=== PATIENT | female | born 1950 | race Caucasian/White ===

== ENCOUNTER 2017-08-16 12:54 | Inpatient (IN) | payer OTHER ==
[~2017-08-16] VITALS: Ht 157.5 cm; Wt 106.3 kg
[~2017-08-16 12:54] MED LIST: NABUMETONE750 MG PO
[2017-08-16 13:53] LABS: HEMATOCRIT 40.5 % (36.0-46.0); MCH 27.4 PG (29.0-34.0); MCHC 32.6 G/DL (30.0-36.0); MCV 84.2 FL (83-99); MEAN PLAT.VOLUME 10.7 uM^3 (9.5-12.4); NRBC (%) 1.9 /100 WBC (0-0); PLATELET COUNT 232 K/uL (156-360); RBC DIS.WIDTH-CV 26.5 % (11.8-14.6); RBC DIS.WIDTH-SD 74.8 % (39-53); RED BLOOD COUNT 4.81 M/uL (3.80-5.20); WHITE BLOOD COUNT 13.9 K/uL (4.1-10.2)
[2017-08-16 14:02] LABS: CHLORIDE 99 mEq/L (99-109); POTASSIUM 4.5 mEq/L (3.7-5.4); SODIUM 132 mEq/L (136-147)
[2017-08-16 14:04] LABS: GLUCOSE 140 mg/dL (70-99)
[2017-08-16 14:05] LABS: ANION GAP 13 MEQ/L (2-14)
[2017-08-16 14:06] LABS: TOTAL BILIRUBIN 17.4 mg/dL (0.0-1.0)
[2017-08-16 14:08] LABS: ALKALINE PHOSPHATASE 955 IU/L (3-129); GFR ESTIMATE (CALCULATED) 32 mL/min/
[2017-08-16 14:11] LABS: UREA NITROGEN (BUN) 35 mg/dL (9-23)
[2017-08-16 14:41] LABS: LIPASE 168 U/L (1.0-51.0)
[2017-08-16 20:25] VITALS: BP 143/64
[2017-08-16 21:41] LABS: ADD MIUA? YES; BILIRUBIN SMALL; BLOOD SMALL; COLOR AMBER ((YELLOW)); GLUCOSE (STRIP) NEGATIVE; KETONES NEGATIVE; LEUKOCYTES LARGE; NITRITE POSITIVE; PROTEIN (STRIP) NEGATIVE; SPECIFIC GRAVITY 1.026 (1.000-1.030)
[2017-08-16 21:50] LABS: BACTERIA 3+ /HPF; EPITHELIAL CELLS RARE /HPF; MUCUS TRACE /LPF; RED BLOOD CELLS 0-5 /HPF (0-5); UCUL ADDED? YES; WHITE BLOOD CELLS TNTC /HPF (0-5); WHITE BLOOD CELLS CLUMP MANY /HPF (0-5)
[2017-08-16 23:25] VITALS: BP 128/60
[2017-08-17 05:49] LABS: HEMATOCRIT 39.2 % (36.0-46.0); MCH 27.1 PG (29.0-34.0); MCHC 31.9 G/DL (30.0-36.0); NRBC (%) 1.6 /100 WBC (0-0); RBC DIS.WIDTH-CV 26.5 % (11.8-14.6); RED BLOOD COUNT 4.61 M/uL (3.80-5.20); WHITE BLOOD COUNT 11.9 K/uL (4.1-10.2)
[2017-08-17 06:01] LABS: INTER. NORMALIZED RATIO 1.2; PROTHROMBIN TIME 14.1 SEC (10.2-12.9)
[2017-08-17 06:15] LABS: ALKALINE PHOSPHATASE 765 IU/L (3-129); ANION GAP 7 MEQ/L (2-14); CHLORIDE 100 MEQ/L (99-109); GFR ESTIMATE (CALCULATED) 34 mL/min/; POTASSIUM 4.8 MEQ/L (3.7-5.4); SAMPLE HEMOLYSIS CHECK 0; SAMPLE ICTERIC CHECK 3; SAMPLE LIPEMIA CHECK 0; SODIUM 135 MEQ/L (136-147); UREA NITROGEN (BUN) 31 mg/dL (9-23)
[2017-08-17 06:16] LABS: MEAN PLAT.VOLUME 10.6 uM^3 (9.5-12.4); PLAT.SUFFICIENCY ADEQUATE; PLATELET COUNT 218 K/uL (156-360)
[2017-08-17 06:18] LABS: GLUCOSE 81 mg/dL (70-99)
[2017-08-17 06:19] LABS: TOTAL BILIRUBIN 16.8 MG/DL (0.0-1.0)
[2017-08-17 06:45] VITALS: BP 146/64
[2017-08-17 12:59] VITALS: BP 128/59
[2017-08-17 16:31] VITALS: BP 135/63
[2017-08-17 23:37] VITALS: BP 111/58
[2017-08-18 06:32] LABS: ALKALINE PHOSPHATASE 810 IU/L (3-129); ANION GAP 10 MEQ/L (2-14); CHLORIDE 105 MEQ/L (99-109); GFR ESTIMATE (CALCULATED) 40 mL/min/; GLUCOSE 78 mg/dL (70-99); LACTATE DEHYDROGENASE 420 IU/L (20-246); POTASSIUM 4.7 MEQ/L (3.7-5.4); SAMPLE HEMOLYSIS CHECK 0; SAMPLE ICTERIC CHECK 3; SAMPLE LIPEMIA CHECK 0; SODIUM 138 MEQ/L (136-147); TOTAL BILIRUBIN 18.9 MG/DL (0.0-1.0); UREA NITROGEN (BUN) 29 mg/dL (9-23); URIC ACID 7.2 mg/dL (3.1-9.2)
[2017-08-18 07:26] LABS: HEMATOCRIT 38.4 % (36.0-46.0); MCH 27.9 PG (29.0-34.0); MCHC 32.3 G/DL (30.0-36.0); MCV 86.3 FL (83-99); MEAN PLAT.VOLUME 10.5 uM^3 (9.5-12.4); NRBC (%) 1.3 /100 WBC (0-0); PLATELET COUNT 201 K/uL (156-360); RBC DIS.WIDTH-CV 27.3 % (11.8-14.6); RBC DIS.WIDTH-SD 81.2 % (39-53); RED BLOOD COUNT 4.45 M/uL (3.80-5.20); WHITE BLOOD COUNT 11.6 K/uL (4.1-10.2)
[2017-08-18 07:46] VITALS: BP 140/60
[2017-08-18 16:18] VITALS: BP 136/63
[2017-08-19] VITALS: BP 145/61
[2017-08-19 06:09] LABS: HEMATOCRIT 38.6 % (36.0-46.0); MCH 27.8 PG (29.0-34.0); MCHC 32.4 G/DL (30.0-36.0); NRBC (%) 1.2 /100 WBC (0-0); RBC DIS.WIDTH-CV 27.9 % (11.8-14.6); RED BLOOD COUNT 4.49 M/uL (3.80-5.20); WHITE BLOOD COUNT 12.8 K/uL (4.1-10.2)
[2017-08-19 06:42] LABS: ALKALINE PHOSPHATASE 848 IU/L (3-129); ANION GAP 10 MEQ/L (2-14); CHLORIDE 102 MEQ/L (99-109); GFR ESTIMATE (CALCULATED) 37 mL/min/; SAMPLE HEMOLYSIS CHECK 0; SAMPLE ICTERIC CHECK 3; SAMPLE LIPEMIA CHECK 0; SODIUM 133 MEQ/L (136-147); TOTAL BILIRUBIN 21.4 MG/DL (0.0-1.0); UREA NITROGEN (BUN) 32 mg/dL (9-23)
[2017-08-19 06:44] LABS: GLUCOSE 99 mg/dL (70-99)
[2017-08-19 07:11] LABS: MEAN PLAT.VOLUME 11.5 uM^3 (9.5-12.4); PLATELET COUNT 196 K/uL (156-360)
[2017-08-19 08:00] VITALS: BP 131/70
[2017-08-19 16:24] VITALS: BP 129/59
[2017-08-20 00:23] VITALS: BP 127/60
[2017-08-20 05:32] LABS: MCH 27.7 PG (29.0-34.0); MCHC 31.9 G/DL (30.0-36.0); MCV 86.9 FL (83-99); MEAN PLAT.VOLUME 10.6 uM^3 (9.5-12.4); NRBC (%) 0.8 /100 WBC (0-0); PLATELET COUNT 198 K/uL (156-360); RBC DIS.WIDTH-CV 27.6 % (11.8-14.6); RBC DIS.WIDTH-SD 83.8 % (39-53); RED BLOOD COUNT 4.26 M/uL (3.80-5.20); WHITE BLOOD COUNT 11.8 K/uL (4.1-10.2)
[2017-08-20 05:57] LABS: ALKALINE PHOSPHATASE 758 IU/L (3-129); ANION GAP 5 MEQ/L (2-14); CHLORIDE 106 MEQ/L (99-109); GFR ESTIMATE (CALCULATED) 40 mL/min/; GLUCOSE 88 mg/dL (70-99); POTASSIUM 4.5 MEQ/L (3.7-5.4); SAMPLE HEMOLYSIS CHECK 0; SAMPLE ICTERIC CHECK 3; SAMPLE LIPEMIA CHECK 0; SODIUM 134 MEQ/L (136-147); TOTAL BILIRUBIN 19.9 MG/DL (0.0-1.0); UREA NITROGEN (BUN) 29 mg/dL (9-23)
[2017-08-20 07:29] VITALS: BP 158/66
[2017-08-20 15:11] VITALS: BP 140/62
[2017-08-21 00:14] VITALS: BP 147/61
[2017-08-21 06:19] LABS: HEMATOCRIT 41.1 % (36.0-46.0); MCH 27.6 PG (29.0-34.0); MCHC 31.4 G/DL (30.0-36.0); MEAN PLAT.VOLUME 10.2 uM^3 (9.5-12.4); NRBC (%) 1.5 /100 WBC (0-0); PLATELET COUNT 197 K/uL (156-360); RBC DIS.WIDTH-SD 90.3 % (39-53); RED BLOOD COUNT 4.67 M/uL (3.80-5.20); WHITE BLOOD COUNT 12.9 K/uL (4.1-10.2)
[2017-08-21 06:48] LABS: ALKALINE PHOSPHATASE 920 IU/L (3-129); ANION GAP 9 MEQ/L (2-14); CHLORIDE 107 MEQ/L (99-109); GFR ESTIMATE (CALCULATED) 37 mL/min/; GLUCOSE 79 mg/dL (70-99); POTASSIUM 4.9 MEQ/L (3.7-5.4); SAMPLE HEMOLYSIS CHECK 0; SAMPLE ICTERIC CHECK 4; SAMPLE LIPEMIA CHECK 0; SODIUM 137 MEQ/L (136-147); UREA NITROGEN (BUN) 31 mg/dL (9-23)
[2017-08-21 08:54] VITALS: BP 163/69
[2017-08-21 15:40] VITALS: BP 137/63
[2017-08-22 00:10] VITALS: BP 148/65
[2017-08-22 05:58] LABS: MCH 28.3 PG (29.0-34.0); MCHC 32.1 G/DL (30.0-36.0); MCV 88.2 FL (83-99); MEAN PLAT.VOLUME 10.7 uM^3 (9.5-12.4); NRBC (%) 2.2 /100 WBC (0-0); PLATELET COUNT 198 K/uL (156-360); RBC DIS.WIDTH-CV 29.5 % (11.8-14.6); RBC DIS.WIDTH-SD 91.7 % (39-53); RED BLOOD COUNT 4.31 M/uL (3.80-5.20); WHITE BLOOD COUNT 11.9 K/uL (4.1-10.2)
[2017-08-22 07:34] LABS: ALKALINE PHOSPHATASE 791 IU/L (3-129); CHLORIDE 106 MEQ/L (99-109); GLUCOSE 82 mg/dL (70-99); POTASSIUM 4.6 MEQ/L (3.7-5.4); SAMPLE HEMOLYSIS CHECK 0; SAMPLE ICTERIC CHECK 4; SAMPLE LIPEMIA CHECK 0; SODIUM 135 MEQ/L (136-147); TOTAL BILIRUBIN 22.5 MG/DL (0.0-1.0); UREA NITROGEN (BUN) 36 mg/dL (9-23)
[2017-08-22 07:55] VITALS: BP 195/72
[2017-08-22 08:12] LABS: GFR ESTIMATE (CALCULATED) 32 mL/min/
[2017-08-22 08:16] LABS: ANION GAP 7 MEQ/L (2-14)
[2017-08-22 10:48] VITALS: BP 140/68
[2017-08-22] MEDS ORDERED: LETROZOLE2.5 MG PO (14:58)
[2017-08-22] MEDS ORDERED: LEVSIN-SL0.125 MG SL (15:03)
[2017-08-22] MEDS ORDERED: MORPHINE CON20 MG/M1 PO (15:03)
[2017-08-22] MEDS ORDERED: ATIVAN0.5 MG PO (15:03)
[2017-08-22 15:49] VITALS: BP 142/65
[2017-08-23 00:11] VITALS: BP 130/63
[2017-08-23 06:12] LABS: MCH 28.5 PG (29.0-34.0); MCHC 32.3 G/DL (30.0-36.0); MCV 88.5 FL (83-99); MEAN PLAT.VOLUME 10.2 uM^3 (9.5-12.4); NRBC (%) 1.5 /100 WBC (0-0); PLATELET COUNT 167 K/uL (156-360); RBC DIS.WIDTH-CV 30.3 % (11.8-14.6); RBC DIS.WIDTH-SD 95.1 % (39-53); RED BLOOD COUNT 4.52 M/uL (3.80-5.20); WHITE BLOOD COUNT 12.4 K/uL (4.1-10.2)
[2017-08-23 06:49] LABS: ALKALINE PHOSPHATASE 885 IU/L (3-129); ANION GAP 10 MEQ/L (2-14); CHLORIDE 107 MEQ/L (99-109); GFR ESTIMATE (CALCULATED) 24 mL/min/; GLUCOSE 65 mg/dL (70-99); POTASSIUM 4.7 MEQ/L (3.7-5.4); SAMPLE HEMOLYSIS CHECK 0; SAMPLE ICTERIC CHECK 4; SAMPLE LIPEMIA CHECK 0; SODIUM 136 MEQ/L (136-147); TOTAL BILIRUBIN 23.7 MG/DL (0.0-1.0); UREA NITROGEN (BUN) 47 mg/dL (9-23)
== END 2017-08-23 13:59 | disposition hospice, home (50) | DRG 435 ==
LOC: EME 12:54 → EDOF 17:24 → 5EAST 17:24 → ENRESERV 17:31 → 5EAST 20:23 → ENPENDDIS 08-23 → EDPENDDISTM 08-23 13:30 → 5EAST 08-23 13:59
PROVIDERS: Internal Medicine
PROC: 0HBU3ZX Excision of Left Breast, Percutaneous Approach, Diagnostic (ICD-10-PCS; principal; 2017-08-17)
DX: C78.7 Secondary malignant neoplasm of liver and intrahepatic bile duct (principal); K83.1 Obstruction of bile duct; N39.0 Urinary tract infection, site not specified; R17 Unspecified jaundice; C79.51 Secondary malignant neoplasm of bone; C79.72 Secondary malignant neoplasm of left adrenal gland; C79.81 Secondary malignant neoplasm of breast; Z68.41 Body mass index [BMI] 40.0-44.9, adult; Z51.5 Encounter for palliative care; K59.00 Constipation, unspecified; I10 Essential (primary) hypertension; E83.52 Hypercalcemia; E78.5 Hyperlipidemia, unspecified; B96.20 Unspecified Escherichia coli [E. coli] as the cause of diseases classified elsewhere; C80.1 Malignant (primary) neoplasm, unspecified; E66.9 Obesity, unspecified; M19.90 Unspecified osteoarthritis, unspecified site; R16.0 Hepatomegaly, not elsewhere classified; Z90.710 Acquired absence of both cervix and uterus; Z90.49 Acquired absence of other specified parts of digestive tract; Z87.891 Personal history of nicotine dependence; Z85.41 Personal history of malignant neoplasm of cervix uteri
CPT/HCPCS: 70551; 71020; 74177; 74183; 76641; 76942; 80053; 81003; 82140; 83615; 83690; 84443; 84550; 85027; 85610; 85730; 86300 90; 87077; 87086; 87186; 88305; 88341 TC; 88342 TC; 88360; 93971; 94799; 99281; 99285; J0696; J1644; J2270; J2405; J3489; J7030; J7050